=== PATIENT | male | born 1945 | race Caucasian/White ===

== ENCOUNTER 2020-07-03 06:14 | Day surgery (SDC) | payer MEDICARE ==
[2020-07-03] MEDS ORDERED: Propofol 200 MG/20 ML SDV IV ONE (06:15)
[2020-07-03] MEDS ORDERED: Lidocaine 2% 5 ML SDV IV ONE (06:15)
[2020-07-03] MEDS ORDERED: Sodium Chloride 0.9% 10 ML Syringe FLUSH PRN (06:45)
[2020-07-03] MEDS ORDERED: Lactated Ringers 1,000 ML IV SCH (06:45)
--- NOTE | 2020-07-03 08:25 | PCM.OPNOTE ---
- General Post-Op/Procedure Note Date of Surgery/Procedure: 07/03/20 Operative Procedure(s): egd with cold forcep biopsy Findings: gastritis esophagitis Pre Op Diagnosis: epigastric abd pain, dysphgia, reflux Post-Op Diagnosis: gastritis. esophagitis Anesthesia Technique: MAC Primary Surgeon: Simeon Simmons Anesthesia Provider: Leonila Mcduffie Pathology: stomach and distal esophagus Complications: None Condition: Good Free Text/Narrative:: [id number] see dictation
[2020-07-03 08:43] VITALS: BP 113/66; PULSE 63
--- NOTE | 2020-07-03 14:31 | OR ---
DATE OF OPERATION: 07/03/2020 SURGEON: Simeon Simmons MD PROCEDURE PERFORMED: Esophagogastroduodenoscopy with cold forceps biopsy. PREOPERATIVE DIAGNOSIS: History of epigastric pain and reflux as well as some dysphagia. POSTOPERATIVE DIAGNOSIS: Gastritis and esophagitis. INDICATIONS FOR PROCEDURE: This is a 75-year-old white male who presented with complaints of some epigastric discomfort. In addition, he has noticed some dysphagia as well as some symptomatic reflux. He was offered and accepted an EGD. DESCRIPTION OF PROCEDURE: After an excellent IV sedation was administered, bite block was inserted. Flexible endoscope was inserted and passed without difficulty down the patient's esophagus into the stomach. The stomach was insufflated. Scope passed through the pylorus to the second portion of the duodenum and slowly withdrawn. The following findings were noted: The duodenum was unremarkable. The stomach demonstrated some diffuse gastritis. Multiple biopsies were taken and submitted. GE junction was at approximately 40 cm. There was some limited erythema in the distal portion of the esophagus, and multiple biopsies were taken. The remainder of the esophageal exam was unremarkable. The stomach was deflated. Scope was removed. The patient tolerated the procedure well and was taken to Recovery. Results will be sent to the patient via letter. /[id number] /MODL
== END 2020-07-03 09:07 | disposition home or self-care (01) ==
LOC: FB.SDS 06:14
PROVIDERS: ATTEND Surgery
DX: K29.50 Unspecified chronic gastritis without bleeding (principal); K21.00 Gastro-esophageal reflux disease with esophagitis, without bleeding; K31.89 Other diseases of stomach and duodenum; E78.49 Other hyperlipidemia; E11.9 Type 2 diabetes mellitus without complications; G47.33 Obstructive sleep apnea (adult) (pediatric); Z01.812 Encounter for preprocedural laboratory examination; Z20.828 Contact with and (suspected) exposure to other viral communicable diseases; Z79.899 Other long term (current) drug therapy; Z91.041 Radiographic dye allergy status
CPT/HCPCS: 00731; 43239; 82962; 88305; 88313; 88342; J2001; J2704; J7120; U0002

== ENCOUNTER 2025-01-10 07:44 | Day surgery (SDC) | payer MEDICARE ==
[2025-01-10] MEDS ORDERED: Lidocaine 2% 100 MG/5 ML Syringe IVPUSH ONE (07:45)
[2025-01-10] MEDS ORDERED: Phenylephrine 0.5% Nasal Spray 15 ML Bot NAS ONE (07:45)
[2025-01-10] MEDS ORDERED: Sodium Chloride 0.9% 10 ML Syringe FLUSH PRN (07:45)
[2025-01-10] MEDS ORDERED: Propofol 200 MG/20 ML SDV IV ONE (07:45)
[2025-01-10] MEDS ORDERED: Ketamine 500 mg/10 ML MDV IV ONE (07:45)
[2025-01-10] MEDS ORDERED: Midazolam 1 MG/ML 2 ML SDV IV ONE (07:45)
[2025-01-10] MEDS: Lactated Ringers 1,000 ML IV SCH (08:32)
[2025-01-10] MEDS: Simethicone Drops 40 MG/0.6 ML 30 ML Bottle ONE (08:48)
[2025-01-10 10:03] VITALS: BP 122/67; PULSE 60
== END 2025-01-10 10:24 | disposition home or self-care (01) ==
LOC: FB.SDS 07:44
PROVIDERS: ATTEND Surgery
DX: Z12.11 Encounter for screening for malignant neoplasm of colon (principal); Z86.0101 Personal history of adenomatous and serrated colon polyps; Z91.041 Radiographic dye allergy status
CPT/HCPCS: 82947; A9270; G0105; J2250; J2704; J3490; J7120; 00811; 99100